=== PATIENT | male | born 1960 | race Caucasian/White ===

== ENCOUNTER 2016-12-19 08:56 | Day surgery (SDC) | payer MEDICARE ==
[~2016-12-19] VITALS: Ht 172.7 cm; Wt 90.9 kg
[~2016-12-19 08:56] MED LIST: ASCO100089 PO; ASPI81TA3 PO; DEP500ER PO; FERR325C PO; KEN25CR EXT; Lactated Ringer's 1,000 ML IV ONE; MAGN200T PO; VENL150C PO
[2016-12-19] MEDS ORDERED: Propofol 10,000 mCg/mL 20 mL Inj ONE (08:57)
[2016-12-19] MEDS ORDERED: Lidocaine PF 1% 30 mL Inj ONE (08:57)
[2016-12-19 09:12] VITALS: BP 148/85; PULSE 71; RESP 14; O2SAT 95
[2016-12-19] MEDS ORDERED: OMEP20TA24 PO (09:18)
[2016-12-19] MEDS ORDERED: Lactated Ringer's 1,000 ML IV SCH (09:41)
--- NOTE | 2016-12-19 09:41 | PCM.HPANE ---
Patient Data Date of Service: Dec 19, 2016 Surgeon Admitting Provider: Attending Provider:Krishan Lange MD Primary Care Physician:Rand Tyson Other Provider:Lina Orozco Anesthesia Reason for Visit Colon Polyp Ht/WT & BMI Height (Feet): 5 Height (Inches): 8 Weight (Kilograms): 90.91 Body Mass Index 30.00 Allergies Coded Allergies: simvastatin (Verified Allergy, Unknown, 12/18/16) Past Anesthesia History Anesthesia History: Denies:: Abnormal Airway, Anesthesia Reactions, Difficult Intubation, Fam Anesthesia Reaction, Fam Malignant Hypertherm, Malignant Hyperthermia Diabetes History Hx Diabetes?: No MRSA MRSA: No Medications Blood Thinner: Aspirin Home Meds Incl Beta Tammy: No Reported Medications Omeprazole Magnesium (Prilosec Otc)20 Mg Tablet.dr20 Mg PO DAILY #1 PKG Ref 0 12/19/16 Ferrous Sulfate (Iron)325 Mg Capsule.er325 Mg PO d 12/18/16 Ascorbic Acid (Vitamin C)1,000 Mg Tab.chew1,000 Mg PO DAILY Ref 0 08/10/15 Triamcinolone Acet (Triamcinolone Acetonide Cream)1 Applic/0.25 Gm CrUnknown Dose EXT BID #60 GM Ref 0 08/10/15 Magnesium 200 Mg [id number] Mg PO 08/10/15 Venlafaxine ER (Effexor XR)150 Mg Capsule Mg PO DAILY Ref 0 08/10/15 Divalproex ER (Depakote ER)500 Mg Wganov192 Mg PO DAILY Ref 0 *DAILY USE ONLY* Swallowed whole without chewing to avoid local irritation of the mouth and throat. 08/10/15 Aspirin Chew 81 Mg Chew81 Mg PO DAILY Ref 0 08/10/15 Discontinued Reported Medications Spironolactone 100 Mg [id number] Mg PO DAILY #30 TABLET Ref 0 08/10/15 Potassium Chloride 10 Meq Capsule.er10 Meq PO DAILY 30 Days Ref 0 TAKE WITH FOOD 08/10/15 Metoprolol Tartrate 25 Mg Hirrbj85 Mg PO BID 30 Days Ref 0 08/10/15 History History of ENT Problems?: Yes HEENT History: Positive for:: Dysphagia (HX OF ESOPH STRICTURE W/ BALLOON DILATION) Denies:: Abnormal Airway Difficult Intubation Hearing Problem Denture Type: Full- Upper Partial- Lower Hx of Heart Problems?: Yes Cardiovascular History: Positive for:: Hypertension Denies:: AICD Atrial Fibrillation Chest Pain Pacemaker Valvular Heart Disease Hx of Respiratory Problem?: No Respiratory History: Denies:: Tuberculosis Neurological History: Denies:: CVA Hx of GI Problems?: Yes Gastrointestinal History: Positive for:: Cirrhosis Gastroesphageal Reflux Liver Disease Denies:: Diverticulitis Gall Bladder Disease Hiatal Hernia Rectal Bleeding Musculoskeletal History: Denies:: Fibromyalgia Joint Replacement Psycho Social History: Positive for:: Anxiety Hx Depression Hx Surgeries?: No (COLONOSCOPIES ONLY) Hx Any Other Health Problems?: Yes Hx Diabetes: No Hx Alcohol Use: Yes (HX)Hx Substance Use: Yes Smoking Status: Current Some Day Smoker Stop/Bang Treated for Sleep Apnea?: Yes Do You Have a CPAP Machine?: Yes (COMPLIANT WITH NIGHTLY USE) ERICKA Risk Assessment: High Risk, =/>3 Yes ERICKA Category 4 OutPt Procedure: Yes Risk Assessment Category Category 1A: Patient has history of documented sleep apnea, and HAS NOT received any narcotic, sedative or anesthesia administration during this stay. Category 1B: Patient has history of documented sleep apnea, and HAS received any narcotic , sedative or anesthesia administration during this stay Category 2: Patient has SUSPECTED Obstructive Sleep Apnea, and HAS received any narcotic , sedative or anesthesia administration during this stay. Category 3: Patient has SUSPECTED Obstructive Sleep Apnea and HAS NOT received narcotic, sedative or anesthesia administration during this stay. Category 4: Outpatient in Procedural Areas with known sleep apnea or who screen positive for High Risk via the STOP/BANG questionnaire. Exam Exam Vital Signs Vital Signs Date Time Temp Pulse Resp B/P Pulse Ox O2 Delivery O2 Flow Rate FiO2 12/19/16 09:12 36.8 71 14 148/85 95 Room Air General Appearance: Alert, Oriented X3, Cooperative HEENT/AIRWAY: MP 2, Neck Movement (OK), Other (Full uppers, partial lowers) Lungs: Clear to Auscultation, Normal Air Movement Heart: Regular Rate/Rhythm, Normal S1, Normal S2 Plan Impression Patient chart reviewed, patient interviewed and anesthestic plan with risks, benefits, and alternatives discussed, and informed consent obtained. NPO Status: > 8 hours solids ASA Physical Status: ASA2 Mod Systemic Disease Anesthetic Plan: MAC Bene/Risks/Altern/Consents: Yes HP Complete Prior to Induction: Yes Singh Hassan MD Dec 19, 2016 09:41
[2016-12-19] MEDS ORDERED: Ondansetron 2 mg/mL 2 mL Inj IVPUSH PRN (09:45)
[2016-12-19] MEDS ORDERED: MetoCLOpramide 5 mg/mL 2 mL Inj IVPUSH PRN (09:45)
[2016-12-19 10:33] VITALS: BP 100/63; PULSE 86; RESP 16; O2SAT 96
--- NOTE | 2016-12-19 10:41 | PCM.ANEP1 ---
Post Anesthesia Phase 1 PACU Phase 1 Assessment Date of Service: Dec 19, 2016 Vital Signs Vital Signs Date Time Temp Pulse Resp B/P Pulse Ox O2 Delivery O2 Flow Rate FiO2 12/19/16 10:33 86 16 100/63 96 Room Air 12/19/16 09:12 36.8 71 14 148/85 95 Room Air Anesthetic Administered: MAC Level of Alertness: Awake, talking AG's with Equal Strength: Yes Pain: No Nausea or Vomiting: No Oxygen Delivery: Room Air Lungs: Normal Air Movement Singh Hassan MD Dec 19, 2016 10:41
[2016-12-19 10:43] VITALS: BP 117/81; PULSE 92; RESP 16; O2SAT 96
[2016-12-19 10:53] VITALS: BP 112/58; PULSE 75; RESP 16; O2SAT 95
--- NOTE | 2016-12-19 11:08 | PCM.ANEP2 ---
Post Anesthesia Evaluation ASA/CMS Post Anesthesia Date of Service: Dec 19, 2016 VS in Patient's Normal Range?: Yes Resp Stable; Airway Patent?: Yes CV Function & Hydration Stable: Yes Mental Status Recovered?: Yes Pain control Satisfactory?: Yes N/V Control Satisfactory?: Yes Singh Hassan MD Dec 19, 2016 11:08
--- NOTE | 2016-12-19 20:13 | ENDO ---
[address] [address] ENDOSCOPY PROCEDURE PATIENT: NIRMALA BROWNING : 1960 MR#: [id number] ADMIT: 12/19/2016 JOB ID: [id number] PRIMARY PROVIDER: Rand Tyson MD PROCEDURE: Colonoscopy with hot snare polypectomy. INDICATIONS: A 56-year-old male with a reported polyp in the ascending colon that was incompletely removed in 2014. At his last exam, we did not identify any residual polyp at this location. He returns for an early repeat surveillance because prep conditions were a little suboptimal. EQUIPMENT: PCF H 190 DL. SEDATION: Monitored anesthesia as provided by Dr. Singh Hassan. COMPLICATIONS: None identified. BOWEL PREPARATION: Fair, adequate exam. PROCEDURE INFORMATION: After the risks and benefits were explained, written and verbal informed consent was obtained. The patient was prepped brought into the endoscopy suite and placed into the left lateral decubitus position. Sedation was achieved as above. A digital rectal examination accomplished. No significant pathology appreciated. The scope was introduced into the rectum and advanced to the cecum as identified by the appendiceal orifice and ileocecal valve. The scope was slowly withdrawn to carefully examine the mucosa for any defects or lesions. Retroflexed views were accomplished in the rectum. The colon was decompressed. The scope removed from the patient who tolerated the procedure well. FINDINGS: We spent a considerable amount of time going up and down the ascending colon in and out of the cecum and did not identify any residual polypoid structure. I estimate we spent probably about 15 minutes doing this in this one section of the intestine. There was an approximately 6 mm polyp around the hepatic flexure on the backside of a fold that we removed with hot snare. This seemed to be aspirated up into the scope but did not turn up in the trap, so it was not convincingly retrieved. Otherwise, no significant pathology appreciated throughout the remainder of the bowel including retroflexed views from within the rectum. ENDOSCOPIC DIAGNOSES: 1. Right colon polyp. 2. Otherwise visually unremarkable colon with an improved prep when compared with last exam. RECOMMENDATIONS: Repeat colonoscopy in three years with anesthesia.
== END 2016-12-19 23:59 | disposition home or self-care (01) ==
LOC: END 08:56
PROVIDERS: ATTEND Internal Medicine Gastroenterology
DX: Z12.11 Encounter for screening for malignant neoplasm of colon (principal); Z86.010 Personal history of colon polyps; K63.5 Polyp of colon; I10 Essential (primary) hypertension; E11.9 Type 2 diabetes mellitus without complications; M54.16 Radiculopathy, lumbar region; F31.9 Bipolar disorder, unspecified; E55.9 Vitamin D deficiency, unspecified; D64.9 Anemia, unspecified; K21.9 Gastro-esophageal reflux disease without esophagitis; F41.9 Anxiety disorder, unspecified; G47.33 Obstructive sleep apnea (adult) (pediatric); F17.210 Nicotine dependence, cigarettes, uncomplicated; Z79.82 Long term (current) use of aspirin